=== PATIENT | female | born 1955 | race Caucasian/White ===

== ENCOUNTER 2022-06-10 15:25 | Inpatient (IN) | payer MEDICARE ==
[2022-06-10] MEDS ORDERED: Morphine 4 MG/ML VIAL ONE (16:25)
[2022-06-10] MEDS ORDERED: Ondansetron PF 4 MG/2 ML Vial ONE (16:26)
[2022-06-10] MEDS ORDERED: hydrALAZINE 20 MG/ML VIAL SLOW IVP PRN (16:53)
[2022-06-10] MEDS ORDERED: Dextrose 5% in Water 1,000 ML IV PRN (16:53)
[2022-06-10] MEDS ORDERED: Dextrose 50% Abboject 50 ML SYRINGE SLOW IVP PRN (16:53)
[2022-06-10] MEDS ORDERED: Insulin Regular 300 UNITS/3 ML VIAL SC PRN (16:53)
[2022-06-10] MEDS ORDERED: Ipratropium/Albuterol 3 ML NEB NEB PRN (16:53)
[2022-06-10] MEDS ORDERED: Ondansetron PF 4 MG/2 ML Vial IVP PRN (16:53)
[2022-06-10] MEDS ORDERED: TETANUS, DIPHTHERIA TOX,ADULT (TDVAX) 0.5 ML VIAL IM ONE (16:53)
[2022-06-10] MEDS ORDERED: Naloxone HCl 0.4 mg/ml Vial IV PRN (16:57)
[2022-06-10] MEDS ORDERED: diphenhydrAMINE 50 MG/ML VIAL IM PRN (16:57)
[2022-06-10] MEDS ORDERED: Promethazine HCl 25 MG/ML VIAL IM PRN (16:57)
[2022-06-10] MEDS ORDERED: diphenhydrAMINE 50 MG/ML VIAL IVP PRN (16:57)
[2022-06-10] MEDS ORDERED: diphenhydrAMINE 25 MG CAP PO PRN (16:57)
[2022-06-10] MEDS ORDERED: HYDROmorphone 10 mg/100 ml CADD IVPB PRN (16:57)
[2022-06-10] MEDS ORDERED: Communication Order-Pharmacy FS SCH (17:00)
[2022-06-10] MEDS ORDERED: Sodium Chloride 0.9% 1,000 ML IV SCH (17:00)
[2022-06-10 17:18] LABS: #Lymphocytes 0.8 thou/uL (1.20-3.40); #Monocytes 0.8 thou/uL (0.11-0.59); #Neutrophils 9.3 thou/uL (1.40-6.50); %Basophils 0.2 % (0.0-1.0); %Eosinophils 0.2 % (0.0-10.0); %Lymphocytes 7.2 % (21.0-51.0); %Monocytes 6.9 % (0.0-10.0); %Neutrophils 85.5 % (42.0-75.0); Hemoglobin 12.5 g/dL (12.0-16.0); Mean Corpuscular HGB CONC 32.8 g/dL (32.0-36.0); Mean Corpuscular Hemoglobin 32.7 pg (27.0-31.0); Mean Corpuscular Volume 99.6 fl (78.0-98.0); Platelet Count 165 10x3/uL (130-400); RBC Distribution Width 11.6 % (11.5-14.5); Red Blood Cell (RBC) Count 3.82 mill/uL (4.20-5.40); White Blood Cell (WBC) Count 10.9 10x3/uL (4.8-10.8)
[2022-06-10 17:32] LABS: INR-International Normal Ratio 1.2; PTT 37.7 sec (22.9-36.1); Prothrombin Time 15.4 sec (12.0-14.7)
[2022-06-10 17:37] LABS: Lactic Acid 0.9 mmol/L (0.5-2.2)
[2022-06-10 17:44] LABS: ALT (SGPT) Less than 7 U/L (8-55); AST (SGOT) 6 U/L (5-34); Albumin 3.3 g/dL (3.4-4.8); Alkaline Phosphatase 67 U/L (40-110); Anion Gap 13 mmol/L (10-20); BUN (Urea Nitrogen) 28 mg/dL (9.8-20.1); Bilirubin, Total 0.5 mg/dL (0.2-1.2); Calc. Creatinine Clearance 0 mL/min (70-130); Calcium 8.6 mg/dL (7.8-10.44); Carbon Dioxide 18 mmol/L (23-31); Chloride 111 mmol/L (98-107); Estimated GFR 48; Globulin 3.1 g/dL (2.4-3.5); Glucose 83 mg/dL (80-115); Magnesium 1.8 mg/dL (1.6-2.6); Phosphorus 3.1 mg/dL (2.3-4.7); Potassium 2.8 mmol/L (3.5-5.1); Protein, Total 6.4 g/dL (5.8-8.1); Sodium 139 mmol/L (136-145)
[2022-06-10] MEDS ORDERED: Boostrix 0.5 ML (Tdap) VIAL (>/=7 yrs of age) ONE (18:15)
[2022-06-10] MEDS ORDERED: Piperacillin/Tazobactam 3.375 GM in Sodium Chloride 0.9% 100 ML IVPB SCH (18:15)
[2022-06-10] MEDS ORDERED: Piperacillin/Tazobactam 3.375 GM VIAL ONE (18:15)
[2022-06-10] MEDS ORDERED: Magnesium 2 GM/50 ML(in water) 2 GM in Premix Bag 1 BAG IVPB SCH (19:30)
[2022-06-10] MEDS ORDERED: Magnesium 2 GM/50 ML BAG (IN WATER) ONE (20:01)
[2022-06-10] MEDS ORDERED: Famotidine/PF 20 mg/2ml Vial ONE (20:02)
[2022-06-10] MEDS ORDERED: Potassium Chloride 20 MEQ/100 ML PREMIX BAG ONE ×2 (20:02→22:31)
[2022-06-10] MEDS: Lactated Ringer's 1,000 ML IV SCH (20:53)
[2022-06-10] MEDS: Potassium Chloride 20 MEQ in Premix Bag 1 BAG IVPB SCH ×2 (20:54→23:14)
[2022-06-10] MEDS ORDERED: Famotidine/PF 20 mg/2ml Vial SLOW IVP SCH (21:00)
[2022-06-10] MEDS ORDERED: Ipratropium/Albuterol 3 ML NEB ONE (21:20)
[2022-06-10] MEDS: Ipratropium/Albuterol 3 ML NEB NEB SCH (21:33)
[2022-06-10 23:35] LABS: Clarity Clear (Clear)
[2022-06-10 23:36] LABS: Bilirubin Negative (Negative); Blood, Urine Negative (Negative); CAUTI Indications for Culture Dysuria,urgency,freq; Glucose, Urine (Dipstick) Normal (Negative); Ketone, Urine Trace mg/dL (Negative); Leukocyte Negative Leu/uL (Negative); Nitrite 1+ (Negative); Protein, Urine (Dipstick) 30 mg/dL (Neg-Trace); Specific Gravity, Urine 1.017 (1.002-1.036); Squamous Epithelial 0-3 HPF (0-3); Urobilinogen Normal mg/dL (Less than 2); WBC/HPF 0-3 HPF (0-3)
[2022-06-10 23:39] LABS: Bacteria/HPF 1+ HPF (None Seen)
[2022-06-10 23:40] LABS: Urine Culture Reflex No No
[2022-06-11 00:48] LABS: Troponin I 0.066 ng/mL (< 0.028)
[2022-06-11] MEDS ORDERED: Piperacillin/Tazobactam 3.375 GM VIAL ONE (01:33)
[2022-06-11] MEDS: Piperacillin/Tazobactam 3.375 GM in Sodium Chloride 0.9% 100 ML IVPB SCH ×4 (01:49→21:52)
[2022-06-11 03:59] LABS: #Eosinphils 0.1 thou/uL (0.0-0.7); #Lymphocytes 1.2 thou/uL (1.20-3.40); #Monocytes 0.9 thou/uL (0.11-0.59); #Neutrophils 7.1 thou/uL (1.40-6.50); %Basophils 0.4 % (0.0-1.0); %Eosinophils 0.7 % (0.0-10.0); %Lymphocytes 13.2 % (21.0-51.0); %Monocytes 9.5 % (0.0-10.0); %Neutrophils 76.1 % (42.0-75.0); Mean Corpuscular HGB CONC 35.2 g/dL (32.0-36.0); Mean Corpuscular Volume 99.6 fl (78.0-98.0); Mean Platelet Volume 10.9 fL (7.4-10.4); Platelet Count 163 10x3/uL (130-400); RBC Distribution Width 11.6 % (11.5-14.5); Red Blood Cell (RBC) Count 3.14 mill/uL (4.20-5.40); White Blood Cell (WBC) Count 9.3 10x3/uL (4.8-10.8)
[2022-06-11] MEDS: Lactated Ringer's 1,000 ML IV SCH (04:07)
[2022-06-11 04:14] LABS: Lactic Acid 0.8 mmol/L (0.5-2.2)
[2022-06-11 04:27] LABS: ALT (SGPT) Less than 7 U/L (8-55); AST (SGOT) 9 U/L (5-34); Albumin 3.1 g/dL (3.4-4.8); Alkaline Phosphatase 68 U/L (40-110); Anion Gap 12 mmol/L (10-20); BUN (Urea Nitrogen) 20 mg/dL (9.8-20.1); Bilirubin, Total 0.6 mg/dL (0.2-1.2); Calc. Creatinine Clearance 75 mL/min (70-130); Calcium 8.8 mg/dL (7.8-10.44); Carbon Dioxide 16 mmol/L (23-31); Chloride 113 mmol/L (98-107); Estimated GFR 81; Globulin 2.9 g/dL (2.4-3.5); Glucose 77 mg/dL (80-115); Magnesium 2.3 mg/dL (1.6-2.6); Phosphorus 2.4 mg/dL (2.3-4.7); Sodium 138 mmol/L (136-145)
[2022-06-11] MEDS: Ipratropium/Albuterol 3 ML NEB NEB SCH ×3 (07:02→18:57)
[2022-06-11] MEDS: Famotidine/PF 20 mg/2ml Vial SLOW IVP SCH ×2 (08:08→21:52)
[2022-06-11] MEDS: D5 1/2 NS w/20 mEq KCL 1,000 ML IV SCH ×2 (08:09→15:33)
[2022-06-12] MEDS: D5 1/2 NS w/20 mEq KCL 1,000 ML IV SCH ×2 (01:05→05:41)
[2022-06-12] MEDS: Piperacillin/Tazobactam 3.375 GM in Sodium Chloride 0.9% 100 ML IVPB SCH ×3 (05:41→21:21)
[2022-06-12 06:00] LABS: #Basophils 0.1 thou/uL (0.0-0.2); #Eosinphils 0.1 thou/uL (0.0-0.7); #Lymphocytes 1.4 thou/uL (1.20-3.40); #Monocytes 0.5 thou/uL (0.11-0.59); #Neutrophils 3.9 thou/uL (1.40-6.50); %Eosinophils 2.3 % (0.0-10.0); %Lymphocytes 23.5 % (21.0-51.0); %Monocytes 8.8 % (0.0-10.0); %Neutrophils 64.4 % (42.0-75.0); Hemoglobin 11.5 g/dL (12.0-16.0); Mean Corpuscular HGB CONC 33.2 g/dL (32.0-36.0); Mean Corpuscular Volume 99.4 fl (78.0-98.0); Mean Platelet Volume 10.2 fL (7.4-10.4); Platelet Count 185 10x3/uL (130-400); RBC Distribution Width 11.8 % (11.5-14.5); Red Blood Cell (RBC) Count 3.49 mill/uL (4.20-5.40); White Blood Cell (WBC) Count 6.1 10x3/uL (4.8-10.8)
[2022-06-12 06:25] LABS: Anion Gap 10 mmol/L (10-20); BUN (Urea Nitrogen) 6 mg/dL (9.8-20.1); Calc. Creatinine Clearance 98 mL/min (70-130); Calcium 9.1 mg/dL (7.8-10.44); Carbon Dioxide 21 mmol/L (23-31); Chloride 111 mmol/L (98-107); Estimated GFR 96; Glucose 128 mg/dL (80-115); Magnesium 1.6 mg/dL (1.6-2.6); Phosphorus 2.5 mg/dL (2.3-4.7); Potassium 3.3 mmol/L (3.5-5.1); Sodium 139 mmol/L (136-145)
[2022-06-12] MEDS: Ipratropium/Albuterol 3 ML NEB NEB SCH ×3 (06:50→18:34)
[2022-06-12] MEDS ORDERED: Magnesium 2 GM/50 ML(in water) 2 GM in Premix Bag 1 BAG IVPB SCH (08:00)
[2022-06-12] MEDS ORDERED: Potassium Phosphate 30 MMOL, Magnesium Sulfate 2 GM in Sodium Chloride 0.9% 250 ML 250 ML IVPB SCH (08:30)
[2022-06-12] MEDS: Famotidine/PF 20 mg/2ml Vial SLOW IVP SCH ×2 (09:12→21:20)
[2022-06-12] MEDS ORDERED: Acetaminophen 500 MG TAB PO PRN (13:03)
[2022-06-12] MEDS ORDERED: traMADol HCl 50 MG TAB PO PRN ×2 (13:03)
[2022-06-13] MEDS: Piperacillin/Tazobactam 3.375 GM in Sodium Chloride 0.9% 100 ML IVPB SCH (05:08)
[2022-06-13 06:34] LABS: #Basophils 0.1 thou/uL (0.0-0.2); #Eosinphils 0.3 thou/uL (0.0-0.7); #Lymphocytes 1.9 thou/uL (1.20-3.40); #Monocytes 0.7 thou/uL (0.11-0.59); #Neutrophils 3.3 thou/uL (1.40-6.50); %Basophils 1.1 % (0.0-1.0); %Eosinophils 4.1 % (0.0-10.0); %Lymphocytes 30.7 % (21.0-51.0); %Monocytes 11.6 % (0.0-10.0); %Neutrophils 52.5 % (42.0-75.0); Hemoglobin 12.5 g/dL (12.0-16.0); Mean Corpuscular HGB CONC 33.3 g/dL (32.0-36.0); Mean Corpuscular Volume 99.2 fl (78.0-98.0); Mean Platelet Volume 10.9 fL (7.4-10.4); Platelet Count 226 10x3/uL (130-400); Red Blood Cell (RBC) Count 3.79 mill/uL (4.20-5.40); White Blood Cell (WBC) Count 6.3 10x3/uL (4.8-10.8)
[2022-06-13 06:57] LABS: Anion Gap 13 mmol/L (10-20); BUN (Urea Nitrogen) Less than 4 mg/dL (9.8-20.1); Calc. Creatinine Clearance 101 mL/min (70-130); Calcium 9.2 mg/dL (7.8-10.44); Carbon Dioxide 20 mmol/L (23-31); Chloride 110 mmol/L (98-107); Estimated GFR 97; Glucose 86 mg/dL (80-115); Magnesium 1.7 mg/dL (1.6-2.6); Phosphorus 3.5 mg/dL (2.3-4.7); Potassium 3.7 mmol/L (3.5-5.1); Sodium 139 mmol/L (136-145)
[2022-06-13] MEDS: Ipratropium/Albuterol 3 ML NEB NEB SCH ×3 (07:21→18:17)
[2022-06-13] MEDS ORDERED: Famotidine 20 MG TAB PO SCH ×2 (09:00→21:00)
[2022-06-13] MEDS ORDERED: PHOS-NAK 1 PKT PACK PO SCH (09:15)
[2022-06-13] MEDS ORDERED: Magnesium 2 GM/50 ML(in water) 2 GM in Premix Bag 1 BAG IVPB SCH (09:15)
[2022-06-13] MEDS: Hydrochlorothiazide 25 MG TAB PO SCH (09:20)
[2022-06-13] MEDS: Potassium Chloride 10 MEQ TAB PO SCH ×2 (09:20→16:37)
[2022-06-13] MEDS: Famotidine/PF 20 mg/2ml Vial SLOW IVP SCH (10:37)
[2022-06-13] MEDS: metroNIDAZOLE 500 MG TAB PO SCH ×2 (16:37→20:17)
[2022-06-13] MEDS: Ciprofloxacin 500 MG TAB PO SCH (20:17)
[2022-06-13] MEDS ORDERED: hydrALAZINE 10 MG TAB PO SCH (21:00)
[2022-06-14] MEDS: Ciprofloxacin 500 MG TAB PO SCH (05:10)
[2022-06-14 06:10] LABS: #Basophils 0.1 thou/uL (0.0-0.2); #Eosinphils 0.4 thou/uL (0.0-0.7); #Lymphocytes 2.3 thou/uL (1.20-3.40); #Monocytes 0.8 thou/uL (0.11-0.59); #Neutrophils 3.5 thou/uL (1.40-6.50); %Eosinophils 5.4 % (0.0-10.0); %Lymphocytes 32.3 % (21.0-51.0); %Monocytes 10.7 % (0.0-10.0); %Neutrophils 50.6 % (42.0-75.0); Mean Corpuscular Hemoglobin 32.9 pg (27.0-31.0); Mean Corpuscular Volume 99.5 fl (78.0-98.0); Mean Platelet Volume 9.8 fL (7.4-10.4); Platelet Count 256 10x3/uL (130-400); RBC Distribution Width 12.2 % (11.5-14.5); Red Blood Cell (RBC) Count 3.96 mill/uL (4.20-5.40)
[2022-06-14 06:31] LABS: Anion Gap 13 mmol/L (10-20); BUN (Urea Nitrogen) 6 mg/dL (9.8-20.1); Calc. Creatinine Clearance 99 mL/min (70-130); Calcium 9.5 mg/dL (7.8-10.44); Carbon Dioxide 21 mmol/L (23-31); Chloride 106 mmol/L (98-107); Estimated GFR 97; Glucose 99 mg/dL (80-115); Magnesium 1.8 mg/dL (1.6-2.6); Phosphorus 3.9 mg/dL (2.3-4.7); Potassium 4.1 mmol/L (3.5-5.1); Sodium 136 mmol/L (136-145)
[2022-06-14] MEDS: Ipratropium/Albuterol 3 ML NEB NEB SCH ×2 (07:03→13:33)
[2022-06-14] MEDS ORDERED: Magnesium 2 GM/50 ML(in water) 2 GM in Premix Bag 1 BAG IVPB SCH (08:30)
[2022-06-14] MEDS ORDERED: FLU VACC QS2022-23(65YR UP)/PF 240 MCG/0.7 ML SYRINGE IM ONE (09:00)
[2022-06-14] MEDS: Hydrochlorothiazide 25 MG TAB PO SCH (09:06)
[2022-06-14] MEDS: metroNIDAZOLE 500 MG TAB PO SCH (09:06)
[2022-06-14] MEDS: Potassium Chloride 10 MEQ TAB PO SCH (09:06)
[2022-06-14] MEDS ORDERED: Saccharomyces boulardii 250 MG CAP PO SCH (12:00)
[2022-06-14 12:47] VITALS: BP 123/81; TEMP 97.3
[2022-06-14 14:41] VITALS: BMI 27.7
== END 2022-06-14 15:14 | disposition home or self-care (01) | DRG 871 ==
LOC: ERS 15:25 → SUATTDRO 15:25 → ERHOLD 16:56 → CCU 06-11 02:29 → SJJU 06-11 17:20
PROVIDERS: ADMIT Family Medicine; ATTEND Family Medicine
DX: A41.9 Sepsis, unspecified organism (principal); I21.4 Non-ST elevation (NSTEMI) myocardial infarction; K57.20 Diverticulitis of large intestine with perforation and abscess without bleeding; N17.9 Acute kidney failure, unspecified; E87.6 Hypokalemia; K21.9 Gastro-esophageal reflux disease without esophagitis; I10 Essential (primary) hypertension; J44.9 Chronic obstructive pulmonary disease, unspecified; E78.5 Hyperlipidemia, unspecified; F17.210 Nicotine dependence, cigarettes, uncomplicated; Z88.2 Allergy status to sulfonamides; Z88.8 Allergy status to other drugs, medicaments and biological substances; Z90.49 Acquired absence of other specified parts of digestive tract; Z90.710 Acquired absence of both cervix and uterus; Z90.89 Acquired absence of other organs; Z98.890 Other specified postprocedural states
CPT/HCPCS: 36415; 36416; 80048; 80053; 83605; 83735; 84100; 85025; 85610; 85730; 86850; 86900; 86901; 90714; 90715; 93005; 93306; 94640; 96374; 96375; J2270; J2405; J2543; J3475; J3480; J3490; J7030; J7050; J7120; J7620; S0028

== ENCOUNTER 2022-10-01 08:00 | Inpatient (IN) | payer MEDICARE ==
[2022-10-01 09:43] VITALS: BMI 25.7
[2022-10-08] MEDS ORDERED: Indocyanine Green 25 MG/10 ML VIAL ONE (09:06)
[2022-10-08] MEDS ORDERED: Bupivacaine/Epinephrine 0.25% 30 ML VIAL ONE (09:06)
[2022-10-08] MEDS ORDERED: fentaNYL PF 100 MCG/2 ML SYRINGE ONE ×2 (09:08→11:34)
[2022-10-08] MEDS ORDERED: Sodium Chloride 0.9% 100 ML ONE (09:26)
[2022-10-08] MEDS ORDERED: cefOXitin 2 GM VIAL ONE ×2 (09:26→12:10)
[2022-10-08] MEDS ORDERED: Midazolam HCl 2 mg/2 ml Vial ONE (09:31)
[2022-10-08] MEDS ORDERED: Bupivacaine PF 0.5% 30 ML VIAL ONE (09:31)
[2022-10-08] MEDS ORDERED: fentaNYL 50 mcg/mL 1 mL Vial ONE ×3 (09:31→13:47)
[2022-10-08] MEDS ORDERED: Metoprolol Tartrate 5 MG/5 ML VIAL ONE (09:54)
[2022-10-08] MEDS ORDERED: PHENYLEPHRINE-NS 100 MCG/ML 10 ML SYRINGE ONE (09:54)
[2022-10-08] MEDS ORDERED: Ondansetron PF 4 MG/2 ML Vial ONE (09:54)
[2022-10-08] MEDS ORDERED: NEOSTIGMINE 3 MG/3 ML SYR 3 MG/3 ML SYRINGE ONE (09:54)
[2022-10-08] MEDS ORDERED: ePHEDrine Sulfate 50 MG/10 ML VIAL ONE (09:54)
[2022-10-08] MEDS ORDERED: Lidocaine 1% PF 5 ML VIAL ONE (09:54)
[2022-10-08] MEDS ORDERED: Glycopyrrolate 0.2 MG/ML 5 ML SYRINGE ONE (09:54)
[2022-10-08] MEDS ORDERED: PROPOFOL 200 MG/20 ML VIAL ONE (09:54)
[2022-10-08] MEDS ORDERED: Rocuronium Bromide 10 MG/ML (10ML VIAL) ONE (09:54)
[2022-10-08] MEDS ORDERED: Phenylephrine 10 MG/ML VIAL ONE (12:21)
[2022-10-08] MEDS ORDERED: Ondansetron HCl/PF 4 MG/2 ML Vial IVP PRN (13:31)
[2022-10-08] MEDS ORDERED: Promethazine HCl 25 MG/ML VIAL IM PRN ×3 (13:31→13:45)
[2022-10-08] MEDS ORDERED: Naloxone HCl 0.4 mg/ml Vial IV PRN (13:32)
[2022-10-08] MEDS ORDERED: diphenhydrAMINE 50 MG/ML VIAL IVP PRN (13:32)
[2022-10-08] MEDS ORDERED: diphenhydrAMINE 25 MG CAP PO PRN (13:32)
[2022-10-08] MEDS ORDERED: diphenhydrAMINE 50 MG/ML VIAL IM PRN (13:32)
[2022-10-08] MEDS ORDERED: Zolpidem Tartrate 5 MG TAB PO PRN (13:32)
[2022-10-08] MEDS ORDERED: FENTANYL 500 MCG/10 ML VIAL 2,000 MCG in Sodium Chloride 0.9% 60 ML IV PRN (13:32)
[2022-10-08] MEDS ORDERED: hydrALAZINE 20 MG/ML VIAL SLOW IVP PRN (13:45)
[2022-10-08] MEDS ORDERED: Ipratropium/Albuterol 3 ML NEB NEB PRN (13:45)
[2022-10-08] MEDS ORDERED: Ondansetron PF 4 MG/2 ML Vial IVP PRN (13:45)
[2022-10-08] MEDS ORDERED: ACTIVE PCA FS PRN (13:45)
[2022-10-08] MEDS: Sodium Chloride 0.9% 1,000 ML IV SCH ×2 (14:55→21:06)
[2022-10-08] MEDS: Amlodipine 5 MG TAB PO SCH (20:25)
[2022-10-08] MEDS: Famotidine 20 MG TAB PO SCH (20:26)
[2022-10-08] MEDS: Lisinopril 20 MG TAB PO SCH (20:26)
[2022-10-08] MEDS: cefOXitin Sodium 1 GM in Sodium Chloride 0.9% 100 ML IVPB SCH (20:42)
[2022-10-08] MEDS: Famotidine/PF 20 mg/2ml Vial SLOW IVP SCH (20:42)
[2022-10-09] MEDS ORDERED: Sevoflurane 250 ML INH ANEST BOTTLE ONE (03:01)
[2022-10-09] MEDS: Sodium Chloride 0.9% 1,000 ML IV SCH ×3 (03:52→20:42)
[2022-10-09] MEDS: cefOXitin Sodium 1 GM in Sodium Chloride 0.9% 100 ML IVPB SCH (04:22)
[2022-10-09 05:41] LABS: #Monocytes 0.4 thou/uL (0.11-0.59); #Neutrophils 6.4 thou/uL (1.40-6.50); %Basophils 0.1 % (0.0-1.0); %Lymphocytes 7.3 % (21.0-51.0); %Monocytes 5.3 % (0.0-10.0); %Neutrophils 86.9 % (42.0-75.0); Hemoglobin 12.5 g/dL (12.0-16.0); Mean Corpuscular HGB CONC 32.1 g/dL (32.0-36.0); Mean Corpuscular Hemoglobin 31.6 pg (27.0-31.0); Mean Corpuscular Volume 98.2 fl (78.0-98.0); Mean Platelet Volume 12.6 fL (7.4-10.4); Platelet Count 154 10x3/uL (130-400); Red Blood Cell (RBC) Count 3.96 mill/uL (4.20-5.40); White Blood Cell (WBC) Count 7.4 10x3/uL (4.8-10.8)
[2022-10-09 06:03] LABS: Anion Gap 10 mmol/L (10-20); BUN (Urea Nitrogen) 13 mg/dL (9.8-20.1); Calc. Creatinine Clearance 72 mL/min (70-130); Calcium 7.8 mg/dL (7.8-10.44); Carbon Dioxide 19 mmol/L (23-31); Chloride 113 mmol/L (98-107); Estimated GFR 80; Glucose 135 mg/dL (80-115); Potassium 3.4 mmol/L (3.5-5.1); Sodium 139 mmol/L (136-145)
[2022-10-09 06:10] LABS: Manual Diff?? YES
[2022-10-09 08:01] LABS: Band 54 % (5-11); CellaVision Operator ID LAB.GE; Lymphocytes 5 % (21-51); Metamyelocyte 4 % (0-0); Monocytes 6 % (0-10); Neutrophil 31 % (42-75); Platelet Morphology Comment Platelets Normal; Polychromasia SLIGHT = 2-3 cells HPF (0-2); Smudge Cells 1.9 %; Total Cell Count 103; Toxic Granulation SLIGHT
[2022-10-09] MEDS: Famotidine/PF 20 mg/2ml Vial SLOW IVP SCH ×2 (08:06→20:37)
[2022-10-09] MEDS: Ondansetron PF 4 MG/2 ML Vial IVP PRN (08:06)
[2022-10-09] MEDS: Famotidine 20 MG TAB PO SCH ×2 (08:07→20:37)
[2022-10-09] MEDS: Acetaminophen 325 MG TAB PO SCH ×3 (12:00→20:37)
[2022-10-09] MEDS: Ketorolac Tromethamine 30 MG/ML VIAL IVP SCH ×3 (12:00→23:43)
[2022-10-09] MEDS: Lisinopril 20 MG TAB PO SCH (20:36)
[2022-10-09] MEDS: Amlodipine 5 MG TAB PO SCH ×2 (20:36→20:41)
[2022-10-10] MEDS: Ketorolac Tromethamine 30 MG/ML VIAL IVP SCH ×4 (00:30→17:33)
[2022-10-10] MEDS: Acetaminophen 325 MG TAB PO SCH ×7 (01:59→21:10)
[2022-10-10] MEDS: Sodium Chloride 0.9% 1,000 ML IV SCH ×2 (05:48→20:39)
[2022-10-10] MEDS ORDERED: oxyCODONE 5 MG TAB PO PRN (08:22)
[2022-10-10] MEDS ORDERED: fentaNYL 50 mcg/mL 1 mL Vial SLOW IVP PRN (08:23)
[2022-10-10] MEDS: Famotidine/PF 20 mg/2ml Vial SLOW IVP SCH ×2 (08:28→20:35)
[2022-10-10] MEDS: Famotidine 20 MG TAB PO SCH ×2 (08:38→20:39)
[2022-10-10] MEDS: oxyCODONE 5 MG TAB PO PRN (20:37)
[2022-10-10] MEDS: Amlodipine 5 MG TAB PO SCH (20:38)
[2022-10-10] MEDS: Lisinopril 20 MG TAB PO SCH (20:39)
[2022-10-11] MEDS: Acetaminophen 325 MG TAB PO SCH ×6 (00:30→21:00)
[2022-10-11 00:52] LABS: #Monocytes 0.4 thou/uL (0.11-0.59); #Neutrophils 5.8 thou/uL (1.40-6.50); %Basophils 0.3 % (0.0-1.0); %Eosinophils 0.3 % (0.0-10.0); %Lymphocytes 10.4 % (21.0-51.0); %Monocytes 5.3 % (0.0-10.0); %Neutrophils 82.6 % (42.0-75.0); Hemoglobin 9.2 g/dL (12.0-16.0); Mean Corpuscular HGB CONC 32.7 g/dL (32.0-36.0); Mean Corpuscular Hemoglobin 31.8 pg (27.0-31.0); Mean Corpuscular Volume 97.2 fl (78.0-98.0); Mean Platelet Volume 13.4 fL (7.4-10.4); Platelet Count 107 10x3/uL (130-400); RBC Distribution Width 13.2 % (11.5-14.5); Red Blood Cell (RBC) Count 2.89 mill/uL (4.20-5.40)
[2022-10-11 01:10] LABS: Lactic Acid 1.3 mmol/L (0.5-2.2)
[2022-10-11 01:15] LABS: ALT (SGPT) 7 U/L (8-55); AST (SGOT) 9 U/L (5-34); Albumin 2.5 g/dL (3.4-4.8); Alkaline Phosphatase 59 U/L (40-110); Anion Gap 12 mmol/L (10-20); BUN (Urea Nitrogen) 16 mg/dL (9.8-20.1); Bilirubin, Total 0.5 mg/dL (0.2-1.2); Calc. Creatinine Clearance 78 mL/min (70-130); Calcium 8.5 mg/dL (7.8-10.44); Carbon Dioxide 16 mmol/L (23-31); Chloride 113 mmol/L (98-107); Estimated GFR 87; Globulin 2.6 g/dL (2.4-3.5); Glucose 80 mg/dL (80-115); Magnesium 1.8 mg/dL (1.6-2.6); Potassium 3.2 mmol/L (3.5-5.1); Protein, Total 5.1 g/dL (5.8-8.1); Sodium 138 mmol/L (136-145)
[2022-10-11] MEDS ORDERED: Sodium Chloride 0.9% 500 ML IV SCH ×2 (01:30→09:45)
[2022-10-11] MEDS ORDERED: NOREPINEPHRINE 8 MG/250 ML-D5W 250 ML IVPB SCH (01:30)
[2022-10-11] MEDS ORDERED: Digoxin 0.5 MG/2 ML AMP SLOW IVP SCH ×2 (01:30→10:15)
[2022-10-11] MEDS ORDERED: Potassium Bicarbonate/Cit Ac 20 MEQ TAB PO SCH (01:45)
[2022-10-11] MEDS ORDERED: Magnesium 2 GM/50 ML(in water) 2 GM in Premix Bag 1 BAG IVPB SCH ×2 (01:45→10:15)
[2022-10-11 02:34] LABS: Actual Bicarbonate (HCO3a) 17.3 mEq/L (22-28); Base Excess (BEa) -6.9 mEq/L (-2.0 to +3.0); CO2 Tension 30.7 mmHg (35.0-45.0); Calcium, Ionized (arterial) 1.19 mmol/L (1.12-1.30); Carboxyhemoglobin (COHb) 1.2 gm% (0.0-3.0); Hematocrit-ABG 32 % (36.0-47.0); Potassium - ABG Lab 3.27 mmol/L (3.70-5.30)
[2022-10-11 02:35] LABS: ALV-art Gradient 103.365 mmHg (0-20); O2 Tension (PaO2), arterial 57.9 mmHg (> 80.0); Puncture Site RRA
[2022-10-11] MEDS: Potassium Chloride 20 MEQ in Premix Bag 1 BAG IVPB SCH ×2 (02:55→03:48)
[2022-10-11] MEDS ORDERED: Phenylephrine 40 MG, Admixture Fee 1 EACH in Sodium Chloride 0.9% 250 ML 250 ML IVPB SCH (03:00)
[2022-10-11] MEDS: Amiodarone 450 MG in Dextrose 5% in Water 250 ML IVPB SCH ×2 (03:24→17:07)
[2022-10-11] MEDS: Sodium Chloride 0.9% 1,000 ML IV SCH ×2 (04:45→12:37)
[2022-10-11] MEDS: Ketorolac Tromethamine 30 MG/ML VIAL IVP SCH ×2 (06:03→12:38)
[2022-10-11 06:56] LABS: #Monocytes 0.5 thou/uL (0.11-0.59); #Neutrophils 8.9 thou/uL (1.40-6.50); %Basophils 0.3 % (0.0-1.0); %Eosinophils 0.3 % (0.0-10.0); %Lymphocytes 7.7 % (21.0-51.0); %Monocytes 4.6 % (0.0-10.0); %Neutrophils 86.7 % (42.0-75.0); Hemoglobin 10.2 g/dL (12.0-16.0); Mean Corpuscular HGB CONC 31.7 g/dL (32.0-36.0); Mean Corpuscular Hemoglobin 31.2 pg (27.0-31.0); Mean Corpuscular Volume 98.5 fl (78.0-98.0); Mean Platelet Volume 13.2 fL (7.4-10.4); Platelet Count 138 10x3/uL (130-400); RBC Distribution Width 13.2 % (11.5-14.5); Red Blood Cell (RBC) Count 3.27 mill/uL (4.20-5.40); White Blood Cell (WBC) Count 10.2 10x3/uL (4.8-10.8)
[2022-10-11] MEDS: Famotidine/PF 20 mg/2ml Vial SLOW IVP SCH ×2 (08:02→21:07)
[2022-10-11 08:31] LABS: Anion Gap 13 mmol/L (10-20); BUN (Urea Nitrogen) 15 mg/dL (9.8-20.1); Calc. Creatinine Clearance 81 mL/min (70-130); Calcium 8.9 mg/dL (7.8-10.44); Carbon Dioxide 16 mmol/L (23-31); Chloride 113 mmol/L (98-107); Estimated GFR 92; Glucose 86 mg/dL (80-115); Potassium 4.5 mmol/L (3.5-5.1); Sodium 137 mmol/L (136-145)
[2022-10-11] MEDS: Famotidine 20 MG TAB PO SCH ×2 (09:17→21:06)
[2022-10-11] MEDS: oxyCODONE 5 MG TAB PO PRN (19:03)
[2022-10-12] MEDS: Sodium Chloride 0.9% 1,000 ML IV SCH ×4 (00:22→17:12)
[2022-10-12] MEDS: Acetaminophen 325 MG TAB PO SCH ×7 (00:26→23:52)
[2022-10-12] MEDS: Amiodarone 450 MG in Dextrose 5% in Water 250 ML IVPB SCH ×2 (02:03→15:49)
[2022-10-12 04:11] LABS: #Eosinphils 0.2 thou/uL (0.0-0.7); #Monocytes 0.5 thou/uL (0.11-0.59); #Neutrophils 4.9 thou/uL (1.40-6.50); %Basophils 0.3 % (0.0-1.0); %Eosinophils 3.4 % (0.0-10.0); %Lymphocytes 12.4 % (21.0-51.0); %Monocytes 7.6 % (0.0-10.0); %Neutrophils 75.8 % (42.0-75.0); Hemoglobin 9.1 g/dL (12.0-16.0); Mean Corpuscular HGB CONC 32.2 g/dL (32.0-36.0); Mean Corpuscular Hemoglobin 31.1 pg (27.0-31.0); Mean Corpuscular Volume 96.6 fl (78.0-98.0); Mean Platelet Volume 12.8 fL (7.4-10.4); Platelet Count 125 10x3/uL (130-400); RBC Distribution Width 13.2 % (11.5-14.5); Red Blood Cell (RBC) Count 2.93 mill/uL (4.20-5.40); White Blood Cell (WBC) Count 6.5 10x3/uL (4.8-10.8)
[2022-10-12 04:34] LABS: ALT (SGPT) 9 U/L (8-55); AST (SGOT) 11 U/L (5-34); Albumin 2.6 g/dL (3.4-4.8); Alkaline Phosphatase 61 U/L (40-110); Anion Gap 9 mmol/L (10-20); BUN (Urea Nitrogen) 9 mg/dL (9.8-20.1); Bilirubin, Total 0.5 mg/dL (0.2-1.2); Calc. Creatinine Clearance 96 mL/min (70-130); Calcium 8.6 mg/dL (7.8-10.44); Carbon Dioxide 18 mmol/L (23-31); Chloride 113 mmol/L (98-107); Estimated GFR 98; Globulin 2.6 g/dL (2.4-3.5); Glucose 90 mg/dL (80-115); Potassium 3.7 mmol/L (3.5-5.1); Protein, Total 5.2 g/dL (5.8-8.1); Sodium 136 mmol/L (136-145)
[2022-10-12] MEDS: Famotidine 20 MG TAB PO SCH ×2 (08:38→20:30)
[2022-10-12] MEDS: Famotidine/PF 20 mg/2ml Vial SLOW IVP SCH ×2 (08:44→20:31)
[2022-10-12] MEDS ORDERED: Amlodipine 5 MG TAB PO SCH (09:45)
[2022-10-12] MEDS ORDERED: Lisinopril 10 MG TAB PO SCH (09:45)
[2022-10-12] MEDS: oxyCODONE 5 MG TAB PO PRN ×2 (12:33→20:30)
[2022-10-12] MEDS: Lisinopril 10 MG TAB PO SCH (20:31)
[2022-10-12] MEDS: Ondansetron PF 4 MG/2 ML Vial IVP PRN (20:31)
[2022-10-12] MEDS: Amiodarone 200 MG TAB PO SCH (20:31)
[2022-10-13] MEDS: Acetaminophen 325 MG TAB PO SCH ×5 (04:50→21:07)
[2022-10-13 06:28] LABS: #Basophils 0.1 thou/uL (0.0-0.2); #Eosinphils 0.3 thou/uL (0.0-0.7); #Neutrophils 9.7 thou/uL (1.40-6.50); %Basophils 0.4 % (0.0-1.0); %Eosinophils 2.7 % (0.0-10.0); %Lymphocytes 10.4 % (21.0-51.0); %Monocytes 7.9 % (0.0-10.0); %Neutrophils 77.8 % (42.0-75.0); Hemoglobin 11.9 g/dL (12.0-16.0); Mean Corpuscular HGB CONC 32.3 g/dL (32.0-36.0); Mean Corpuscular Hemoglobin 31.6 pg (27.0-31.0); Mean Corpuscular Volume 97.9 fl (78.0-98.0); Mean Platelet Volume 11.9 fL (7.4-10.4); Platelet Count 208 10x3/uL (130-400); RBC Distribution Width 13.2 % (11.5-14.5); Red Blood Cell (RBC) Count 3.76 mill/uL (4.20-5.40); White Blood Cell (WBC) Count 12.5 10x3/uL (4.8-10.8)
[2022-10-13 07:08] LABS: ALT (SGPT) 13 U/L (8-55); AST (SGOT) 13 U/L (5-34); Albumin 3.2 g/dL (3.4-4.8); Alkaline Phosphatase 112 U/L (40-110); Anion Gap 12 mmol/L (10-20); BUN (Urea Nitrogen) 5 mg/dL (9.8-20.1); Bilirubin, Total 0.7 mg/dL (0.2-1.2); Calc. Creatinine Clearance 89 mL/min (70-130); Calcium 10.1 mg/dL (7.8-10.44); Carbon Dioxide 26 mmol/L (23-31); Chloride 104 mmol/L (98-107); Estimated GFR 96; Globulin 3.7 g/dL (2.4-3.5); Glucose 78 mg/dL (80-115); Potassium 3.2 mmol/L (3.5-5.1); Protein, Total 6.9 g/dL (5.8-8.1); Sodium 139 mmol/L (136-145)
[2022-10-13] MEDS: Amiodarone 450 MG in Dextrose 5% in Water 250 ML IVPB SCH (07:08)
[2022-10-13] MEDS: Amlodipine 5 MG TAB PO SCH (08:00)
[2022-10-13] MEDS: Famotidine 20 MG TAB PO SCH ×2 (08:01→21:06)
[2022-10-13] MEDS: Amiodarone 200 MG TAB PO SCH ×2 (08:01→21:06)
[2022-10-13] MEDS: Famotidine/PF 20 mg/2ml Vial SLOW IVP SCH ×2 (08:05→21:08)
[2022-10-13] MEDS: Lisinopril 10 MG TAB PO SCH ×2 (08:12→21:08)
[2022-10-13] MEDS ORDERED: Potassium Chloride 20 MEQ in Premix Bag 1 BAG IVPB SCH (10:00)
[2022-10-13] MEDS: Ondansetron PF 4 MG/2 ML Vial IVP PRN ×2 (10:20→21:09)
[2022-10-13] MEDS: Diphenoxylate HCl/Atropine Tablet PO SCH ×2 (16:18→21:07)
[2022-10-13] MEDS: oxyCODONE 5 MG TAB PO PRN (21:09)
[2022-10-14] MEDS: Acetaminophen 325 MG TAB PO SCH ×6 (03:52→21:24)
[2022-10-14 05:09] LABS: #Basophils 0.1 thou/uL (0.0-0.2); #Eosinphils 0.3 thou/uL (0.0-0.7); #Monocytes 1.2 thou/uL (0.11-0.59); #Neutrophils 7.6 thou/uL (1.40-6.50); %Basophils 0.5 % (0.0-1.0); %Eosinophils 2.5 % (0.0-10.0); %Lymphocytes 13.5 % (21.0-51.0); %Neutrophils 70.8 % (42.0-75.0); Hemoglobin 10.8 g/dL (12.0-16.0); Mean Corpuscular HGB CONC 31.6 g/dL (32.0-36.0); Mean Corpuscular Hemoglobin 30.3 pg (27.0-31.0); Mean Corpuscular Volume 96.1 fl (78.0-98.0); Mean Platelet Volume 11.9 fL (7.4-10.4); Platelet Count 221 10x3/uL (130-400); RBC Distribution Width 13.3 % (11.5-14.5); Red Blood Cell (RBC) Count 3.56 mill/uL (4.20-5.40); White Blood Cell (WBC) Count 10.8 10x3/uL (4.8-10.8)
[2022-10-14 05:27] LABS: ALT (SGPT) 9 U/L (8-55); AST (SGOT) 8 U/L (5-34); Albumin 2.7 g/dL (3.4-4.8); Alkaline Phosphatase 84 U/L (40-110); Anion Gap 14 mmol/L (10-20); BUN (Urea Nitrogen) 8 mg/dL (9.8-20.1); Bilirubin, Total 0.4 mg/dL (0.2-1.2); Calc. Creatinine Clearance 96 mL/min (70-130); Calcium 8.8 mg/dL (7.8-10.44); Carbon Dioxide 22 mmol/L (23-31); Chloride 105 mmol/L (98-107); Estimated GFR 98; Globulin 3.2 g/dL (2.4-3.5); Glucose 69 mg/dL (80-115); Potassium 3.5 mmol/L (3.5-5.1); Protein, Total 5.9 g/dL (5.8-8.1); Sodium 137 mmol/L (136-145)
[2022-10-14] MEDS: Diphenoxylate HCl/Atropine Tablet PO SCH ×3 (06:12→21:22)
[2022-10-14] MEDS: Amiodarone 200 MG TAB PO SCH ×2 (08:53→21:22)
[2022-10-14] MEDS: Famotidine 20 MG TAB PO SCH ×2 (08:53→21:21)
[2022-10-14] MEDS: Lisinopril 10 MG TAB PO SCH ×2 (08:53→21:22)
[2022-10-14] MEDS: Amlodipine 5 MG TAB PO SCH (08:53)
[2022-10-14] MEDS: Famotidine/PF 20 mg/2ml Vial SLOW IVP SCH ×2 (17:40→22:52)
[2022-10-15] MEDS: Acetaminophen 325 MG TAB PO SCH ×4 (02:44→11:57)
[2022-10-15 04:31] LABS: #Basophils 0.1 thou/uL (0.0-0.2); #Eosinphils 0.2 thou/uL (0.0-0.7); #Monocytes 1.1 thou/uL (0.11-0.59); #Neutrophils 6.5 thou/uL (1.40-6.50); %Basophils 0.6 % (0.0-1.0); %Eosinophils 2.4 % (0.0-10.0); %Lymphocytes 16.4 % (21.0-51.0); %Monocytes 11.2 % (0.0-10.0); %Neutrophils 67.5 % (42.0-75.0); Mean Corpuscular HGB CONC 31.6 g/dL (32.0-36.0); Mean Corpuscular Hemoglobin 30.1 pg (27.0-31.0); Mean Corpuscular Volume 95.1 fl (78.0-98.0); Mean Platelet Volume 11.3 fL (7.4-10.4); Platelet Count 276 10x3/uL (130-400); RBC Distribution Width 13.5 % (11.5-14.5); Red Blood Cell (RBC) Count 3.66 mill/uL (4.20-5.40); White Blood Cell (WBC) Count 9.6 10x3/uL (4.8-10.8)
[2022-10-15] MEDS: Diphenoxylate HCl/Atropine Tablet PO SCH ×2 (05:00→13:38)
[2022-10-15] MEDS: oxyCODONE 5 MG TAB PO PRN (05:00)
[2022-10-15 05:07] LABS: Anion Gap 14 mmol/L (10-20); BUN (Urea Nitrogen) 6 mg/dL (9.8-20.1); Calc. Creatinine Clearance 96 mL/min (70-130); Calcium 9.2 mg/dL (7.8-10.44); Carbon Dioxide 25 mmol/L (23-31); Chloride 104 mmol/L (98-107); Estimated GFR 98; Glucose 87 mg/dL (80-115); Potassium 3.5 mmol/L (3.5-5.1); Sodium 139 mmol/L (136-145)
[2022-10-15] MEDS ORDERED: Apixaban 5 MG TAB PO SCH (09:00)
[2022-10-15] MEDS: Famotidine 20 MG TAB PO SCH (09:05)
[2022-10-15] MEDS: Lisinopril 10 MG TAB PO SCH (09:05)
[2022-10-15] MEDS: Amiodarone 200 MG TAB PO SCH (09:05)
[2022-10-15] MEDS: Amlodipine 5 MG TAB PO SCH (09:05)
[2022-10-15] MEDS: Famotidine/PF 20 mg/2ml Vial SLOW IVP SCH (09:06)
[2022-10-15 15:45] VITALS: BP 107/74; TEMP 97.5
== END 2022-10-15 15:48 | disposition home or self-care (01) | DRG 329 ==
LOC: SURG A 10-08 06:32 → CCU 10-11 01:52 → 2NO 10-13 13:15
PROVIDERS: ADMIT Surgery; ATTEND Emergency Medicine
PROC: 0DBG0ZZ Excision of Left Large Intestine, Open Approach (ICD-10-PCS; principal; 2022-10-08)
PROC: 0D1B0Z4 Bypass Ileum to Cutaneous, Open Approach (ICD-10-PCS; 2022-10-08)
PROC: 0DU907Z Supplement Duodenum with Autologous Tissue Substitute, Open Approach (ICD-10-PCS; 2022-10-09)
DX: K57.20 Diverticulitis of large intestine with perforation and abscess without bleeding (principal); J96.01 Acute respiratory failure with hypoxia; K26.5 Chronic or unspecified duodenal ulcer with perforation; R57.1 Hypovolemic shock; K63.2 Fistula of intestine; I10 Essential (primary) hypertension; I48.0 Paroxysmal atrial fibrillation; F17.210 Nicotine dependence, cigarettes, uncomplicated; K21.9 Gastro-esophageal reflux disease without esophagitis; E83.42 Hypomagnesemia; Z88.2 Allergy status to sulfonamides; Z88.5 Allergy status to narcotic agent; Z90.49 Acquired absence of other specified parts of digestive tract; Z90.710 Acquired absence of both cervix and uterus; I95.9 Hypotension, unspecified; Z79.899 Other long term (current) drug therapy; E78.5 Hyperlipidemia, unspecified; G89.29 Other chronic pain
CPT/HCPCS: 36415; 36416; 36600; 71045; 80048; 80053; 82805; 83605; 83735; 83880; 85025; 88307; 93005; 93010; 97139; A4649; C1776; J0282; J0694; J1160; J1650; J1885; J2250; J2370; J2405; J2704; J3010; J3475; J3480; J3490; J7030; J7050; J7070; S0020; S0028

== ENCOUNTER 2022-10-01 08:49 | Outpatient (CLI) | payer MEDICARE ==
[2022-10-01 10:34] LABS: #Basophils 0.1 10x3/uL (0.0-0.2); #Eosinphils 0.2 10x3/uL (0.0-0.5); #Monocytes 0.4 10x3/uL (0.0-1.1); #Neutrophils 4.9 10x3/uL (1.5-8.4); %Basophils 1.4 % (0.0-2.0); %Eosinophils 2.2 % (0.0-6.0); %Lymphocytes 24.5 % (18.0-47.0); %Neutrophils 66.6 % (40.0-75.0); Hemoglobin 14.2 g/dL (12.0-15.5); Mean Corpuscular HGB CONC 32.1 g/dL (32.0-36.0); Mean Corpuscular Volume 96.7 fl (81.6-98.3); Platelet Count 202 10x3/uL (150-450); RBC Distribution Width 13.1 % (11.5-14.5); Red Blood Cell (RBC) Count 4.58 10x6/uL (3.90-5.03); White Blood Cell (WBC) Count 7.4 10x3/uL (3.5-10.5)
[2022-10-01 10:44] LABS: Anion Gap 16 mmol/L (10-20); BUN (Urea Nitrogen) 9 mg/dL (9.8-20.1); Calc. Creatinine Clearance 0 mL/min (70-130); Calcium 9.8 mg/dL (7.8-10.44); Carbon Dioxide 21 mmol/L (23-31); Chloride 110 mmol/L (98-107); Estimated GFR 95; Glucose 85 mg/dL (80-115); Potassium 4.2 mmol/L (3.5-5.1); Sodium 143 mmol/L (136-145)
[2022-10-01 14:07] LABS: Hemoglobin A1c 4.9 % (4.0-6.0)
== END 2022-10-01 08:50 | disposition home or self-care (01) ==
LOC: LABBT 08:49
PROVIDERS: ATTEND Surgery
DX: Z01.812 Encounter for preprocedural laboratory examination (principal); K63.2 Fistula of intestine
CPT/HCPCS: 80048; 83036; 85025

== ENCOUNTER 2022-11-13 13:12 | Outpatient (CLI) | payer MEDICARE | END 2022-11-13 13:13 | disposition home or self-care (01) | LOC: RAD 13:12 | PROVIDERS: ATTEND Surgery | DX: K94.13 Enterostomy malfunction (principal); K57.30 Diverticulosis of large intestine without perforation or abscess without bleeding | CPT/HCPCS: 74280 ==

== ENCOUNTER 2023-03-10 11:19 | Outpatient (CLI) | payer MEDICARE | END 2023-03-10 11:20 | disposition home or self-care (01) | LOC: BICMAMMO 11:19 | PROVIDERS: ATTEND Internal Medicine | DX: Z12.31 Encounter for screening mammogram for malignant neoplasm of breast (principal) | CPT/HCPCS: 77063; 77067 ==

== ENCOUNTER 2023-12-16 08:20 | Outpatient (CLI) | payer MEDICARE | END 2023-12-16 08:21 | disposition home or self-care (01) | LOC: BICCT 08:20 | PROVIDERS: ATTEND Surgery | DX: K43.2 Incisional hernia without obstruction or gangrene (principal); M62.08 Separation of muscle (nontraumatic), other site | CPT/HCPCS: 74177; 82565 ==

== ENCOUNTER 2025-05-05 13:22 | Outpatient (CLI) | payer MEDICARE | END 2025-05-05 13:23 | disposition home or self-care (01) | LOC: BICCT 13:22 | PROVIDERS: ATTEND Family Medicine | DX: Z12.2 Encounter for screening for malignant neoplasm of respiratory organs (principal); Z87.891 Personal history of nicotine dependence | CPT/HCPCS: 71271 ==

== ENCOUNTER 2025-05-30 10:02 | Outpatient (CLI) | payer MEDICARE | END 2025-05-30 10:03 | disposition home or self-care (01) | LOC: BICMAMMO 10:02 | PROVIDERS: ATTEND Family Medicine | DX: Z12.31 Encounter for screening mammogram for malignant neoplasm of breast (principal); R92.333 Mammographic heterogeneous density, bilateral breasts | CPT/HCPCS: 77063; 77067 ==